=== PATIENT | male | born 1940 | race Caucasian/White ===

== ENCOUNTER 2018-08-22 04:42 | Outpatient (CLI) | payer MEDICARE, BC ==
--- NOTE | 2018-08-23 09:03 | EKG ---
Test Reason : Blood Pressure : / mmHG Vent. Rate : 042 BPM Atrial Rate : 063 BPM P-R Int : 000 ms QRS Dur : 106 ms QT Int : 448 ms P-R-T Axes : 036 -12 055 degrees QTc Int : 374 ms Sinus rhythm with 2nd degree A-V block (Mobitz I) Abnormal ECG When compared with ECG of 21-JUL-2013 12:45, Sinus rhythm is now with 2nd degree A-V block (Mobitz I) Vent. rate has decreased BY 40 BPM T wave inversion no longer evident in Inferior leads T wave amplitude has decreased in Anterior leads QT has shortened Confirmed by DR. Sylwia NEFF ([id number]) on 08/23/2018 9:03:01 AM Referred By: TERELL Confirmed By:DR. Sylwia NEFF
== END 2018-08-22 04:43 | disposition home or self-care (01) ==
LOC: LABBT 04:42
PROVIDERS: ATTEND Orthopaedic Surgery
DX: Z01.818 Encounter for other preprocedural examination (principal); M17.12 Unilateral primary osteoarthritis, left knee
CPT/HCPCS: 87081; 93005; 93010

== ENCOUNTER 2018-09-03 06:32 | Inpatient (IN) | payer MEDICARE, BC ==
[2018-08-22 12:31] VITALS: BMI 29.2
[2018-09-03] MEDS ORDERED: Vancomycin HCl 1.5 GM in Sodium Chloride 0.9% 250 ML 300 ML IVPB SCH (07:00)
[2018-09-03] MEDS ORDERED: Midazolam HCl 2 mg/2 ml Vial ONE (07:22)
[2018-09-03] MEDS ORDERED: Fentanyl 100 MCG/2 ML VIAL ONE (07:22)
[2018-09-03] MEDS ORDERED: Tranexamic Acid 1,000 MG/10 ML VIAL ONE (07:59)
[2018-09-03] MEDS ORDERED: Sodium Chloride 0.9% 100 ML ONE (07:59)
--- NOTE | 2018-09-03 08:12 | RAD ---
TWO VIEWS OF THE CHEST: COMPARISON: 06/13/2016. HISTORY: Preoperative radiograph. FINDINGS: Two views of the chest show a normal-size cardiomediastinal silhouette. The patient is status post s ternotomy. The patient has had an aortic valve replacement. There is no evidence of consolidation, mass, or pleural effusion. Degenerative changes are seen in the spine. IMPRESSION: No evidence of acute cardiopulmonary disease. POS: H
[2018-09-03] MEDS ORDERED: Promethazine HCl 25 MG/ML VIAL IM PRN ×3 (08:29→09:59)
[2018-09-03] MEDS ORDERED: HYDROcodone/Acetaminophen 5/325 mg Tablet PO PRN (08:29)
[2018-09-03] MEDS ORDERED: traMADol HCl 50 MG TAB PO PRN ×2 (08:29)
[2018-09-03] MEDS ORDERED: Ondansetron PF 4 MG/2 ML Vial IVP PRN ×2 (08:29→08:55)
[2018-09-03] MEDS ORDERED: Ropivacaine HCl/PF 250 ML in Premix Bag 1 BAG NERVE BLCK SCH (08:29)
[2018-09-03] MEDS ORDERED: Zolpidem Tartrate 5 MG TAB PO PRN ×2 (08:29→08:55)
[2018-09-03] MEDS ORDERED: Fentanyl 100 MCG/2 ML VIAL IV PRN (08:30)
[2018-09-03] MEDS ORDERED: Acetaminophen 325 MG TAB PO PRN (08:55)
[2018-09-03] MEDS ORDERED: diphenhydrAMINE 25 MG CAP PO PRN (08:55)
[2018-09-03] MEDS ORDERED: CEFAZOLIN/Water 2 GM/20 ML SYRINGE SLOW IVP SCH (09:00)
[2018-09-03] MEDS ORDERED: Non-Formulary Item 1 EACH (Multivitamin [Multi-Vitamin Daily] 1 TAB) PO SCH (09:00)
[2018-09-03] MEDS ORDERED: Ondansetron HCl/PF 4 MG/2 ML Vial IVP PRN (09:59)
[2018-09-03] MEDS ORDERED: Promethazine HCl 25 MG/ML VIAL SLOW IVP PRN (09:59)
--- NOTE | 2018-09-03 12:28 | RAD ---
LEFT KNEE TWO VIEWS: HISTORY: Postop total knee. COMPARISON: None. FINDINGS: Satisfactory appearance of left total knee arthroplasty and patellar resurfacing. Expected postopera tive gas and edema. IMPRESSION: Satisfactory postoperative appearance. POS: TPC
--- NOTE | 2018-09-03 13:14 | OP ---
DATE OF PROCEDURE: 09/03/2018 PREOPERATIVE DIAGNOSIS: Degenerative joint disease, left knee. POSTOPERATIVE DIAGNOSIS: Degenerative joint disease, left knee. PROCEDURE PERFORMED: Left total knee arthroplasty using Issue triathlon 5 femur, 4 tibia, 9 mm CS X3 polyethylene, and A32 patella. MARKETING OFFICER: Jaun Joseph MD ESTIMATED BLOOD LOSS: Minimal. SPECIMENS: None. DRAINS: None. COMPLICATIONS: None. PROCEDURE IN DETAIL: After informed consent was obtained in the preoperative holding area, the patient was taken to the operative suite where general anesthesia was induced. Once adequate level of general anesthesia was obtained, the patient was positioned and a well-padded tourniquet was placed around the left proximal thigh. The left lower extremity was then prepped and draped in the usual sterile fashion. Prior to exsanguination, a time-out was called and all members of the surgical team agreed upon site, surgeon, and patient. The extremity was then exsanguinated and the tourniquet was raised. A midline longitudinal incision was then made directly over the patella extending 2 fingerbreadths above the superior pole of the patella and 2 fingerbreadths inferior to the inferior patellar pole of the patella. Deeper subcutaneous layers were dissected sharply and local bleeding was controlled with Bovie electrocautery. A quad tendon longitudinal split was then made sharply and a median parapatellar arthrotomy was carried out both sharp and with Bovie electrocautery, carried down to 1 fingerbreadth medial to the tibial tubercle. The knee was then placed into flexion and the patella was everted nicely, and a copious fat pad ectomy was performed allowing for greater exposure of the tibia. The computer-assisted distal femoral fiducial was then placed and pinned firmly, and the distal femoral cutting guide was pinned firmly into place. The oscillating saw was then used to remove the appropriate amount of bone. The 4-in-1 cutting block was then placed on the distal femur and the oscillating saw was used to remove the appropriate amount of bone off the anterior, posterior, and chamfer cuts. After completion of bone cuts, the anterior cruciate ligament was resected sharply and the posterior cruciate ligament retractor was placed and the tibia was subluxed for better exposure. Partial meniscectomies were carried out, and the tibial computer-assisted fiducial was pinned, and the cutting guide was placed. Oscillating saw was then used to remove the bone, with Hohmann retractors used to take care and protect the collateral ligaments. After the tibial resection was performed, a laminar facilities administrator was placed in between the freshened bone cuts. The knee placed at 90 degrees and further bilateral meniscectomies were carried out, and the curved osteotome and curettage were used to remove any excess bone spurs in the posterior compartment. The trial femoral component, tibial baseplate were placed with the appropriate polyethylene trial insert with an appropriate polyethylene spacer and patellar button. The knee was taken through full range of motion with flexion and extension from 0 to 90 degrees and patellar broach squarely in the trochlea without any squinting or subluxation noted. The knee was also stable to varus and valgus stressing at 0, 15, 45, and 90 degrees of flexion. The drawer was negative. All trial components were then removed and the keel punch was used to provide the appropriate defect in the tibia with a mallet. The freshened bone cuts were copiously irrigated with pulsatile lavage of about 1.5 L to remove all excess debris. The freshened bone cuts were then dried with suction and lap sponge. The knee was placed in flexion and retractors were placed to provide access to all bone cuts. Tobramycin-impregnated methyl methacrylate cement was then placed on the freshened bone cuts and implants which were malleted firmly into place. Curettage and [place] elevators were used to remove any excess bone cement. The knee was placed into full extension and the patellar button was placed under compression, and the cement was allowed to cure. Once completed, the components were again taken through full range of motion and copious irrigation of the knee was carried out with another liter of normal saline. All components were inspected fully with full range of motion and varus and valgus stressing. There was no laxity noted and full extension was observed clinically. Primary closure was accomplished with #2 interrupted Vicryl stitch of the arthrotomy defect. This was oversewn with a #2 running Quill barbed stitch. The gravitational platelet system was then injected into the arthrotomy prior to closure. The subcutaneous layer was then closed with a running 0 barbed Monocryl stitch and skin closure accomplished with a running subcuticular 3-0 Monocryl barbed Quill stitch and augmented with cement on the skin. Tourniquet was lowered. Good spontaneous return of distal pulses was noted clinically and a sterile dressing was applied to the incision. The procedure was terminated without any complications. The patient was awakened in the operative suite and the patient was taken to the recovery room in stable condition. Job ID: [id number]
[2018-09-03] MEDS ORDERED: Ropivacaine 0.5% HCl/PF (150 MG/30 ML VIAL) ONE (13:40)
[2018-09-03] MEDS ORDERED: Ropivacaine 0.2% HCl/PF (40 MG/20 ML VIAL) ONE (13:40)
[2018-09-03] MEDS ORDERED: Lidocaine 1% PF 5 ML VIAL ONE (14:36)
[2018-09-03] MEDS ORDERED: PROPOFOL 200 MG/20 ML VIAL ONE (14:36)
[2018-09-03] MEDS ORDERED: Ondansetron PF 4 MG/2 ML Vial ONE (14:36)
[2018-09-03] MEDS: Furosemide 40 MG TAB PO SCH (14:57)
[2018-09-03] MEDS: Aspirin 81 mg Enteric Coated Tablet PO SCH ×2 (14:57→20:35)
[2018-09-03] MEDS: Metoprolol Tartrate 25 MG TAB PO SCH ×2 (14:57→20:35)
[2018-09-03] MEDS: Ketorolac Tromethamine 30 MG/ML VIAL IVP SCH ×3 (14:58→23:26)
[2018-09-03] MEDS: Sodium Chloride 0.9% 1,000 ML IV SCH ×3 (14:58→20:32)
[2018-09-03] MEDS: CEFAZOLIN 2 GM in Premix Bag 1 BAG IVPB SCH ×2 (18:28→23:26)
[2018-09-03] MEDS: Atorvastatin Calcium 40 MG TAB PO SCH (20:34)
[2018-09-04 04:41] LABS: Hemoglobin 9.1 g/dL (14.0-18.0); Mean Corpuscular Hemoglobin 29.5 pg (27.0-31.0); Mean Corpuscular Volume 89.3 fL (78.0-98.0); Mean Platelet Volume 6.5 fL (7.4-10.4); Platelet Count 234 thou/uL (130-400); RBC Distribution Width 12.8 % (11.5-14.5); White Blood Cell (WBC) Count 9.8 thou/uL (4.8-10.8)
[2018-09-04] MEDS: Ketorolac Tromethamine 30 MG/ML VIAL IVP SCH ×4 (05:56→22:08)
--- NOTE | 2018-09-04 08:29 | CON ---
DATE OF CONSULTATION: 09/04/2018 HISTORY OF PRESENT ILLNESS: Benny Nobles is a 77-year-old male with known history of atherosclerotic coronary artery disease as well as history of aortic valve revision. He presents to the hospital today to have left knee replacement, which he has undergone successfully. He reports no immediate postop complaints of chest pain or shortness of breath. He does report prior to surgery that he was found to have a pulse rate in the mid 30s, which did cause some concerns, no other medical complaints are otherwise noted. PHYSICAL EXAMINATION: VITAL SIGNS: Temperature 98.7, pulse 83, and blood pressure 95/53. LUNGS: Clear. HEART: Reveals a regular rate and rhythm with a grade 2/6 systolic ejection murmur, which he has had previously. ABDOMEN: Soft, nontender. Bowel sounds are active. No hepatosplenomegaly is noted. There is no evidence of any rebound or guarding otherwise noted. LABORATORY DATA: His hemoglobin is 9.1, hematocrit 27.7. IMPRESSION: This is a 77-year-old male with known history of atherosclerotic coronary artery disease as well as aortic valve revision with bioprosthetic valve. He is status post left total knee replacement surgery. Postoperatively, he is stable and doing well. PLAN: I anticipate no further recommendation that can be in current medications. Observation if the patient's pulse become bradycardic, he could certainly be related to some of the medication he is taking in beta-saray form such as metoprolol, which we may have to hold if needed. Job ID: [id number]
[2018-09-04] MEDS: HYDROcodone/Acetaminophen 5/325 mg Tablet PO PRN (08:46)
[2018-09-04] MEDS: Ferrous Gluconate 324 MG TAB PO SCH ×2 (08:48→18:13)
[2018-09-04] MEDS: Senokot S 8.6-50 MG TAB PO SCH ×2 (08:51→20:41)
[2018-09-04] MEDS: Metoprolol Tartrate 25 MG TAB PO SCH ×2 (08:52→20:41)
[2018-09-04] MEDS: Multivitamin W/ Minerals 1 TAB PO SCH (08:52)
[2018-09-04] MEDS: Furosemide 40 MG TAB PO SCH (08:53)
[2018-09-04] MEDS: Aspirin 81 mg Enteric Coated Tablet PO SCH ×2 (11:05→20:41)
[2018-09-04] MEDS: Sodium Chloride 0.9% 1,000 ML IV SCH ×2 (18:13→22:43)
[2018-09-04] MEDS: Atorvastatin Calcium 40 MG TAB PO SCH (20:41)
[2018-09-05] MEDS: Ketorolac Tromethamine 30 MG/ML VIAL IVP SCH (03:24)
[2018-09-05 06:04] LABS: Hemoglobin 8.2 g/dL (14.0-18.0); Mean Corpuscular HGB CONC 32.7 g/dL (32.0-36.0); Mean Corpuscular Hemoglobin 29.6 pg (27.0-31.0); Mean Corpuscular Volume 90.4 fL (78.0-98.0); Mean Platelet Volume 7.3 fL (7.4-10.4); Platelet Count 224 thou/uL (130-400); RBC Distribution Width 12.8 % (11.5-14.5); Red Blood Cell (RBC) Count 2.79 mill/uL (4.70-6.10); White Blood Cell (WBC) Count 10.1 thou/uL (4.8-10.8)
[2018-09-05] MEDS: HYDROcodone/Acetaminophen 5/325 mg Tablet PO PRN ×2 (07:19→11:35)
[2018-09-05] MEDS: Ferrous Gluconate 324 MG TAB PO SCH (07:21)
[2018-09-05] MEDS: Aspirin 81 mg Enteric Coated Tablet PO SCH (07:21)
[2018-09-05] MEDS: Multivitamin W/ Minerals 1 TAB PO SCH (07:21)
[2018-09-05] MEDS: Metoprolol Tartrate 25 MG TAB PO SCH (07:22)
[2018-09-05] MEDS: Furosemide 40 MG TAB PO SCH (07:24)
[2018-09-05] MEDS: Senokot S 8.6-50 MG TAB PO SCH (07:24)
--- NOTE | 2018-09-05 10:53 | PRG ---
DATE OF SERVICE: 09/05/2018 SUBJECTIVE: Mr. Nobles is doing well postoperatively. He is walking in the hospital. He has no medical complaints. OBJECTIVE: VITAL SIGNS: Temperature 99.9, O2 saturations 91% on room air, blood pressure 108/45, and pulse 75 and regular. LUNGS: Clear. HEART: Reveals regular rate and rhythm with 2/6 systolic ejection murmur that is unchanged from previous exams. LABORATORY DATA: Hemoglobin is 8.2 and hematocrit 25.2. ASSESSMENT: 1. Stable postoperative course, left total knee replacement. 2. History of atherosclerotic coronary artery disease/ valve. PLAN: He is stable from my viewpoint. He is stable to be discharged on current medications. Job ID: [id number]
[2018-09-05] MEDS: Sodium Chloride 0.9% 1,000 ML IV SCH (11:41)
[2018-09-05 11:53] VITALS: BP 120/67; TEMP 97.5
== END 2018-09-05 14:05 | disposition home or self-care (01) | DRG 470 ==
LOC: SDC 06:32 → SURG B 12:28
PROVIDERS: ADMIT Orthopaedic Surgery; ATTEND Orthopaedic Surgery
PROC: 0SRD0J9 Replacement of Left Knee Joint with Synthetic Substitute, Cemented, Open Approach (ICD-10-PCS; principal; 2018-09-03)
DX: M17.12 Unilateral primary osteoarthritis, left knee (principal); I10 Essential (primary) hypertension; I25.10 Atherosclerotic heart disease of native coronary artery without angina pectoris; Z79.82 Long term (current) use of aspirin
CPT/HCPCS: 36415; 71046; 85027; C1713; C1776; J1885; J2001; J2250; J2405; J2704; J2795; J3010; J3370; J7050